=== PATIENT | female | born 1975 | race Two or more races ===

== ENCOUNTER → 2025-03-26 | Outpatient (CLI) | payer MEDICAID, SELFPAY ==
--- NOTE | 2025-03-26 | XR_ITS ---
Examination: Duplex scan of the lower extremity, unilateral left Date and time of exam: March 26 2025, 1139 hours Left leg pain 1 month, patient is anticoagulated Technique: Duplex scan of the extremity veins using B-mode/grayscale imaging and Doppler spectral analysis and color flow Attention is directed to internal echogenicity, compression and augmentation involving these veins, color flow assessment, spectral analysis Findings: No diagnostic visualization distal left superficial femoral or left popliteal veins No DVT demonstrated Impression: Limited study with no DVT demonstrated
== END | disposition home or self-care (01) ==
PROVIDERS: Referring Provider Hospitalist; Visit Provider Hospitalist
DX: M79.605 Pain in left leg (principal); M79.89 Other specified soft tissue disorders
CPT/HCPCS: 93971